=== PATIENT | male | born 1960 | race Caucasian/White ===

== ENCOUNTER 2019-06-04 20:42 | Emergency (ER) | payer MEDICAID ==
[~2019-06-04] VITALS: Ht 185.4 cm; Wt 99.8 kg
[2019-06-04 20:45] VITALS: BP_SYST 157
--- NOTE | 2019-06-04 21:09 | NUR ---
Patient to ER bed 1 to gown for evaluation. Side rails up. Report given to AMISH NDIAYE.
--- NOTE | 2019-06-04 21:10 | NUR ---
Pt AAOx4 ambulated into ED c/o dizziness, nausea, blurred vision, 1 episode of vomiting today s/p trip and fall and hitting head on toolbox yesterday. Denies KO. Abrasion noted to L eye brow. Breathing even and unlabored. No other injuries/complaints per pt/noted. Will continue to monitor.
--- NOTE | 2019-06-04 21:45 | NUR ---
ER Dr. Ulloa at bedside examining patient.
[2019-06-04] MEDS ORDERED: DIPH-TET-PERTUS Vaccine 0.5 ML VIAL (ADACEL) I.M. ONE (23:30)
[2019-06-04] MEDS ORDERED: BACITRACIN ZINC 15 GM TOPICAL OINTMENT TP ONE (23:30)
--- NOTE | 2019-06-04 23:41 | NUR ---
Tdap administered. Wound cleansed with NS, bacitracin and non-adherent dressing applied. PT tolerated well.
[2019-06-04] MEDS ORDERED: BACITRACIN 1 GM OINT TP ONE ×2 (23:45→23:48)
--- NOTE | 2019-06-04 23:49 | NUR ---
Patient given written and verbal discharge instructions and verbalizes understanding. ER MD Ulloa discussed with patient the results and treatment provided. Patient in stable condition. ID arm band removed. No Rx given. Patient educated on pain management and to follow up with PMD. Pain Scale 0. Opportunity for questions provided and answered. Medication side effect fact sheet provided.
[2019-06-04 23:50] VITALS: BP_SYST 109
== END 2019-06-04 23:49 | disposition home or self-care (01) ==
LOC: SED 20:42
DX: S01.01XA Laceration without foreign body of scalp, initial encounter (principal); I10 Essential (primary) hypertension; E03.9 Hypothyroidism, unspecified; W18.09XA Striking against other object with subsequent fall, initial encounter; Y93.89 Activity, other specified; Y92.59 Other trade areas as the place of occurrence of the external cause; Y99.8 Other external cause status
CPT/HCPCS: 70450-TC; 72125-TC; 90715; 93005; 99284